=== PATIENT | male | born 1975 | race Two or more races ===

== ENCOUNTER → 2018-05-27 | Outpatient (CLI) | payer BC ==
[~2018-05-27] MED LIST: GADOBUTROL 10 MMOL/10 ML VIAL IV ONE
--- NOTE | 2018-05-27 13:32 | KCIC ---
EYE FOR FOREIGN BODY History: Screening for MRI today, previous metal to the left eye 2 weeks ago Comparison: None. Findings: 2 views of the orbits are submitted. No metallic foreign body is identified in the region of orbits. Impression: 1. No metallic foreign body is identified in the region of orbits. Electronically signed by: Antelmo Spear MD (05/27/2018 1:29 PM) [id number]
--- NOTE | 2018-05-27 14:51 | KCIC ---
MRI Brain with and without contrast History: Intractable migraine headaches, chills for over one week, headache Technique: Multiplanar, multi sequential pre and postcontrast MR imaging was performed of the brain. Contrast: 10 cc Gadavist Comparison: None Findings: There is some motion degradation. There is no evidence of recent infarct or cytotoxic edema. The ventricles, sulci, and cisterns are within normal limits in size and configuration. There is no significant midline shift, intraaxial mass effect, or focal abnormal extra-axial fluid collection. There is no significant signal abnormality of the brain parenchyma. There is no nodular parenchymal or leptomeningeal enhancement. There is preservation of the major intracranial flow-voids at the skull base. The cerebellar tonsils are normal in location. There is no significant abnormality of the pineal gland or pituitary gland. There is mild bilateral ethmoid air cell mucosal thickening and minimal left maxillary sinus mucosal thickening. The mastoid air cells are aerated. There is preserved marrow signal of the clivus. Impression: 1. There is no significant intracranial abnormality. 2. There is mild paranasal sinus mucosal thickening as stated. Electronically signed by: Antelmo Spear MD (05/27/2018 2:47 PM) [id number]
== END | disposition home or self-care (01) ==
LOC: KCIC MRI 12:46
PROVIDERS: ATTEND Nurse Practitioner Gerontology
DX: Z01.00 Encounter for examination of eyes and vision without abnormal findings (principal); J34.89 Other specified disorders of nose and nasal sinuses; G43.819 Other migraine, intractable, without status migrainosus
CPT/HCPCS: 70030; 70553; A9585